=== PATIENT | female | born 1965 | race Hispanic/Latino ===

== ENCOUNTER 2017-12-13 19:50 | Emergency (ER) | payer OTHER ==
--- NOTE | 2017-12-13 21:22 | ER ---
Nurse's Notes [facility] Name: Eileen Marte Age: 52 yrs Sex: Female : 1965 Arrival Date: 12/13/2017 Time: 19:53 Bed 20 Private MD: Diagnosis: Cellulitis of right lower limb;Hypertension to be determined Presentation: 12/13 19:59 Presenting complaint: Patient states: abscess to RLE for 3 weeks, not responsive to PO la1 ABX. Transition of care: patient was not received from another setting of care. Onset of symptoms was December 13, 2017. Risk Assessment: Do you want to hurt yourself or someone else? Patient reports no desire to harm self or others. Initial Sepsis Screen: Does the patient meet any 2 criteria? No. Patient's initial sepsis screen is negative. Does the patient have a suspected source of infection? No. Patient's initial sepsis screen is negative. Care prior to arrival: None. 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 - Social history:: Smoking status: Patient uses tobacco products, smokes one-half pack cigarettes per day. - Ebola Screening: : No symptoms or risks identified at this time. Screenin:08 Abuse screen: Denies threats or abuse. Nutritional screening: No deficits noted. jd3 Tuberculosis screening: No symptoms or risk factors identified. Fall Risk Ambulatory Aid- None/Bed Rest/Nurse Assist (0 pts). Gait- Normal/Bed Rest/Wheelchair (0 pts) Mental Status- Oriented to own ability (0 pts). Total Jay Fall Scale indicates No Risk (0-24 pts). Assessment: 20:04 General: Appears in no apparent distress. uncomfortable, Behavior is cooperative, jd3 agitated. Pain: Complains of pain in right sarmiento Pain does not radiate. Quality of pain is described as aching, pressure. Neuro: Level of Consciousness is awake, alert, obeys commands, Oriented to person, place, time, situation. Cardiovascular: Capillary refill < 3 seconds Patient's skin is warm and dry. Pulses are palpable in right posterior tibial artery, right dorsalis pedis artery, left posterior tibial artery and left dorsalis pedis artery. Respiratory: Airway is patent Respiratory effort is even, unlabored, Respiratory pattern is regular, symmetrical. GI: Abdomen is round non-distended, Patient currently denies abdominal pain, diarrhea, nausea, vomiting. : No signs and/or symptoms were reported regarding the genitourinary system. EENT: No signs and/or symptoms were reported regarding the EENT system. Derm: Skin is intact, Skin is dry, Skin is normal, Skin temperature is warm Wound noted right sarmiento Wound is quarter sized wound that is red raised and scabbed over. Other: pt denies any fever or streaking up leg. Musculoskeletal: Circulation, motion, and sensation intact. Range of motion: intact in all extremities. 20:34 Reassessment: Patient appears in no apparent distress at this time. Patient and/or jd3 family updated on plan of care and expected duration. Pain level reassessed. Patient is alert, oriented x 3, equal unlabored respirations, skin warm/dry/pink. provider at bedside discussing plan of care. 21:04 Reassessment: Patient appears in no apparent distress at this time. Patient and/or jd3 family updated on plan of care and expected duration. Pain level reassessed. Patient is alert, oriented x 3, equal unlabored respirations, skin warm/dry/pink. 21:29 Reassessment: Patient appears in no apparent distress at this time. Patient and/or jd3 family updated on plan of care and expected duration. Pain level reassessed. Patient is alert, oriented x 3, equal unlabored respirations, skin warm/dry/pink. Vital Signs: 19:59 BP 176 / 100; Pulse 80; Resp 19; Temp 98.2(TE); Pulse Ox 100% on R/A; Weight 63.5 kg; la1 Height 5 ft. 0 in. (152.40 cm); 20:34 BP 166 / 88; Pulse 75; Resp 16 S; Pulse Ox 98% on R/A; jd3 21:02 BP 159 / 80; Pulse 84; Resp 16 S; Pulse Ox 98% on R/A; jd3 19:59 Body Mass Index 27.34 (63.50 kg, 152.40 cm) la1 ED Course: 19:53 Patient arrived in ED. ds1 19:58 Tomas Cat MD is Attending Physician. tw4 19:59 Triage completed. la1 20:00 Deshawn Watson, RN is Primary Nurse. jd3 20:00 Arm band placed on left wrist. la1 20:08 Patient has correct armband on for positive identification. Bed in low position. Call jd3 light in reach. Side rails up X 1. Adult w/ patient. 21:29 No provider procedures requiring assistance completed. Patient did not have IV access jd3 during this emergency room visit. Administered Medications: No medications were administered Outcome: 21:22 Discharge ordered by MD. tw4 21:29 Discharged to home ambulatory, with family. jd3 21:29 Condition: stable 21:29 Discharge instructions given to patient, family, Instructed on discharge instructions, follow up and referral plans. medication usage, Demonstrated understanding of instructions, follow-up care, medications, Prescriptions given X 1. 21:30 Patient left the ED. jd3 Signatures: Shanita Gramajo ds1 Sean Enciso RN RN laDeshawn Fernandes, JUANITA RN jTomas Covarrubias MD MD tw4
--- NOTE | 2017-12-13 21:23 | EDPHYS ---
Physician Documentation [facility] Name: Eileen Marte Age: 52 yrs Sex: Female : 1965 Arrival Date: 12/13/2017 Time: 19:53 Bed 20 Private MD: ED Physician Tomas Cat HPI: 12/14 05:19 This 52 yrs old Female presents to ER via Ambulatory with complaints of Leg tw4 Infection. 05:19 The patient presents with cellulitis of the right sarmiento. Description: The affected area tw4 is small. Onset: The symptoms/episode began/occurred 1 month(s) ago. Possible cause(s): unknown. Associated signs and symptoms: The patient has no apparent associated signs or symptoms. Modifying factors: the symptoms are alleviated by nothing, the symptoms are aggravated by nothing. Severity of symptoms: At their worst the symptoms were moderate, in the emergency department the symptoms are unchanged. The patient has not experienced similar symptoms in the past. 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 - Social history:: Smoking status: Patient uses tobacco products, smokes one-half pack cigarettes per day. - Ebola Screening: : No symptoms or risks identified at this time. ROS: 12/14 05:19 Constitutional: Negative for fever, chills, and weight loss, Eyes: Negative for injury, tw4 pain, redness, and discharge, Cardiovascular: Negative for chest pain, palpitations, and edema, Respiratory: Negative for shortness of breath, cough, wheezing, and pleuritic chest pain, Abdomen/GI: Negative for abdominal pain, nausea, vomiting, diarrhea, and constipation, Back: Negative for injury and pain, Neuro: Negative for headache, weakness, numbness, tingling, and seizure. Exam: 05:19 Constitutional: This is a well developed, well nourished patient who is awake, alert, tw4 and in no acute distress. Head/Face: Normocephalic, atraumatic. Chest/axilla: Normal chest wall appearance and motion. Nontender with no deformity. No lesions are appreciated. Cardiovascular: Regular rate and rhythm with a normal S1 and S2. No gallops, murmurs, or rubs. Normal PMI, no JVD. No pulse deficits. Respiratory: Lungs have equal breath sounds bilaterally, clear to auscultation and percussion. No rales, rhonchi or wheezes noted. No increased work of breathing, no retractions or nasal flaring. Abdomen/GI: Soft, non-tender, with normal bowel sounds. No distension or tympany. No guarding or rebound. No evidence of tenderness throughout. Back: No spinal tenderness. No costovertebral tenderness. Full range of motion. MS/ Extremity: Pulses equal, no cyanosis. Neurovascular intact. Full, normal range of motion. Neuro: Awake and alert, GCS 15, oriented to person, place, time, and situation. Cranial nerves II-XII grossly intact. Motor strength 5/5 in all extremities. Sensory grossly intact. Cerebellar exam normal. Normal gait. Vital Signs: 12/13 19:59 BP 176 / 100; Pulse 80; Resp 19; Temp 98.2(TE); Pulse Ox 100% on R/A; Weight 63.5 kg; la1 Height 5 ft. 0 in. (152.40 cm); 20:34 BP 166 / 88; Pulse 75; Resp 16 S; Pulse Ox 98% on R/A; jd3 21:02 BP 159 / 80; Pulse 84; Resp 16 S; Pulse Ox 98% on R/A; jd3 19:59 Body Mass Index 27.34 (63.50 kg, 152.40 cm) la1 MDM: 20:06 Patient medically screened. tw4 12/14 05:20 Differential diagnosis: allergic reaction, cellulitis, insect bite. Data reviewed: tw4 vital signs, nurses notes. Data interpreted: awake overnight monitor: Pulse oximetry: Interpretation: normal. Counseling: I had a detailed discussion with the patient and/or guardian regarding: the historical points, exam findings, and any diagnostic results supporting the discharge/admit diagnosis. Special discussion: I discussed with the patient/guardian in detail that at this point there is no indication for admission to the hospital. It is understood, however, that if the symptoms persist or worsen the patient needs to return immediately for re-evaluation. Administered Medications: No medications were administered Disposition: 12/13/17 21:22 Discharged to Home. Impression: Cellulitis of right lower limb, Hypertension to be determined. - Condition is Stable. - Discharge Instructions: Cellulitis, Adult, Hypertension, [id number]. - Prescriptions for Clindamycin HCl 300 mg Oral Capsule - take 1 capsule by ORAL route every 6 hours for 10 days; 40 capsule. - Medication Reconciliation Form, Thank You Letter, Antibiotic Education, Prescription Opioid Use form. - Follow up: Private Physician; When: Upon discharge from the Emergency Department; Reason: Further diagnostic work-up, Recheck today's complaints, Continuance of care. - Problem is an ongoing problem. - Symptoms have improved. Signatures: Sean Enciso, RN RN la1 Deshawn Watson RN RN jd3 Tomas Cat MD MD tw4 Corrections: (The following items were deleted from the chart) 12/13 21:30 21:22 12/13/2017 21:22 Discharged to Home. Impression: Cellulitis of right lower limb; jd3 Hypertension to be determined. Condition is Stable. Forms are Medication Reconciliation Form, Thank You Letter, Antibiotic Education, Prescription Opioid Use. Follow up: Private Physician; When: Upon discharge from the Emergency Department; Reason: Further diagnostic work-up, Recheck today's complaints, Continuance of care. Problem is an ongoing problem. Symptoms have improved. tw4
== END 2017-12-13 21:30 | disposition home or self-care (01) ==
LOC: ER 19:50
DX: L03.115 Cellulitis of right lower limb (principal); I10 Essential (primary) hypertension; F17.210 Nicotine dependence, cigarettes, uncomplicated; Z88.6 Allergy status to analgesic agent
CPT/HCPCS: 99282

== ENCOUNTER 2019-05-12 07:28 | Emergency (ER) | payer OTHER ==
[2019-05-12] MEDS ORDERED: NA CHLORIDE 0.9% 0 ML ONE (07:46)
--- NOTE | 2019-05-12 07:49 | EDPHYS ---
Physician Documentation [facility] Name: Eileen Marte Age: 53 yrs Sex: Female : 1965 Arrival Date: 05/12/2019 Time: 07:30 Bed 5 Private MD: [place]ño ED Physician Shyam Oliveira HPI: 05/12 07:38 This 53 yrs old Female presents to ER via Ambulatory with complaints of pm1 Possible Kidney Stone. 07:38 The patient complains of pain in the right low back. Onset: The symptoms/episode pm1 began/occurred this morning, at 03:00. Modifying factors: The symptoms are alleviated by possibly from vomiting and bowel movement, the symptoms are aggravated by nothing. Associated signs and symptoms: Pertinent positives: diarrhea, vomiting, Pertinent negatives: dysuria, fever. Severity of pain: in the emergency department the pain has improved is a 3 / 10. The patient has not experienced similar symptoms in the past. It is unknown whether or not the patient has recently seen a physician. Patient woke up this AM around 0300 with right flank pain that she believed was possibly a kidney stone. Has no history of kidney stones. Patient with vomiting and two episodes of diarrhea. Patient feels that her symptoms have improved after having the bowel movement. Currently pain only present to suprapubic area 3/10. Historical: - Allergies: 07:32 Codeine; sv - Home Meds: 07:40 telmisartan 40 mg oral tab 1 tab once daily [Active]; sv - PMHx: 07:40 Hypertension; sv - PSHx: 07:40 uterine ablation; sv - Immunization history:: Flu vaccine is not up to date. - Coronavirus screen:: The patient has NOT traveled to [place], [place], or [place] in the past 14 days. Proceed with normal triage process as indicated. The patient has NOT had contact with known/suspected case of Coronavirus? Proceed with normal triage procedures. - Social history:: Smoking status: Patient reports the use of cigarette tobacco products, denies chronic smoking, but will smoke occasionally. - Ebola Screening: : No symptoms or risks identified at this time. ROS: 07:41 Constitutional: Negative for fever, chills, and weight loss, Cardiovascular: Negative pm1 for chest pain, palpitations, and edema, Respiratory: Negative for shortness of breath, cough, wheezing, and pleuritic chest pain. 07:41 : Negative for injury, bleeding, discharge, and swelling, MS/Extremity: Negative for injury and deformity, Skin: Negative for injury, rash, and discoloration, Neuro: Negative for headache, weakness, numbness, tingling, and seizure. 07:41 Abdomen/GI: Positive for abdominal pain, vomiting, diarrhea, of the suprapubic area, Negative for constipation. 07:41 Back: Positive for flank pain, on the right. Exam: 07:41 Constitutional: This is a well developed, well nourished patient who is awake, alert, pm1 and in no acute distress. Head/Face: Normocephalic, atraumatic. Chest/axilla: Normal chest wall appearance and motion. Nontender with no deformity. No lesions are appreciated. 07:41 Cardiovascular: Regular rate and rhythm with a normal S1 and S2. No gallops, murmurs, or rubs. No pulse deficits. Respiratory: Lungs have equal breath sounds bilaterally, clear to auscultation and percussion. No rales, rhonchi or wheezes noted. No increased work of breathing, no retractions or nasal flaring. Abdomen/GI: Soft, non-tender, with normal bowel sounds. No distension or tympany. No guarding or rebound. No evidence of tenderness throughout. Back: No spinal tenderness. No costovertebral tenderness. Full range of motion. Skin: Warm, dry with normal turgor. Normal color with no rashes, no lesions, and no evidence of cellulitis. MS/ Extremity: Pulses equal, no cyanosis. Neurovascular intact. Full, normal range of motion. 07:41 Neuro: Orientation: is normal, Motor: moves all fours, Gait: is steady, at a normal pace, without difficulty. Vital Signs: 07:41 BP 137 / 83; Pulse 83; Resp 16; Pulse Ox 99% ; Weight 63.5 kg; Height 5 ft. 0 in. sv (152.40 cm); Pain 3/10; 07:41 Body Mass Index 27.34 (63.50 kg, 152.40 cm) sv MDM: 07:33 Patient medically screened. pm1 07:41 Data reviewed: vital signs. Data interpreted: Pulse oximetry: on room air is 99 %. pm1 Interpretation: normal. 07:43 Refusal of service: The patient/guardian displays adequate decision making capability pm1 and despite a detailed discussion of alternatives, benefits, risks, and consequences refuses: CT Scan, all lab tests, Medications. Administered Medications: No medications were administered Disposition: 10:21 Co-signature as Attending Physician, Shyam Oliveira MD I agree with the assessment and allen plan of care. Disposition: 05/12/19 07:45 Patient has left against medical advice. Impression: Unspecified abdominal pain, Low back pain. - Patients states they are going to Home. - Condition is Undetermined. - Discharge Instructions: Abdominal Pain, Adult, Flank Pain, Adult. Follow up: Emergency Department; When: As needed; Reason: Worsening of condition. Follow up: Private Physician; When: Upon discharge from the Emergency Department; Reason: Recheck today's complaints, Continuance of care, Re-evaluation by your physician. - Problem is new. - Symptoms have improved. Signatures: Dispatcher [employer] Sharifa Hawkins RN RN sv Anderson, Corey, MD MD cha Marinas, Patrick, DIRECTOR FAMILY DIRECTOR FAMILY pm1 Corrections: (The following items were deleted from the chart) 07:41 07:32 Allergies: PENICILLINS; sv sv 07:48 07:45 05/12/2019 07:45 Patients has left against medical advice. Impression: sv Unspecified abdominal pain; Low back pain. Patient states they are going to Home. Condition is Undetermined. Follow up: Emergency Department; When: As needed; Reason: Worsening of condition. Follow up: Private Physician; When: Upon discharge from the Emergency Department; Reason: Recheck today's complaints, Continuance of care, Re-evaluation by your physician. Problem is new. Symptoms have improved. pm1
--- NOTE | 2019-05-12 07:49 | ER ---
Nurse's Notes [facility] Name: Eileen Marte Age: 53 yrs Sex: Female : 1965 Arrival Date: 05/12/2019 Time: 07:30 Bed 5 Private MD: [place] Tre[place]ño Diagnosis: Unspecified abdominal pain;Low back pain Presentation: 05/12 07:32 Presenting complaint: Patient states: right buttock pain started this morning around sv 0300 and went around to the front abd, had a BM of diarrhea twice and pain subsided. Reports vomiting this morning and now only has lower abd soreness. Transition of care: patient was not received from another setting of care. Onset of symptoms was May 12, 2019 at 03:00. Risk Assessment: Do you want to hurt yourself or someone else? Patient reports no desire to harm self or others. Care prior to arrival: None. 07:32 Method Of Arrival: Ambulatory sv 07:32 Acuity: SARAHY 3 sv Triage Assessment: 07:32 General: Appears in no apparent distress. comfortable, well groomed, well developed, sv Behavior is calm, cooperative, appropriate for age. Pain: Complains of pain in right lower quadrant and left lower quadrant Pain does not radiate. Pain currently is 3 out of 10 on a pain scale. Quality of pain is described as "soreness" Pain began 0300 Is intermittent. Neuro: Level of Consciousness is awake, alert, obeys commands, Oriented to person, place, time, situation, Moves all extremities. Full function Gait is steady. Respiratory: Respiratory effort is even, unlabored, Respiratory pattern is regular, symmetrical. GI: Abdomen is flat, non-distended, Abd is soft and non tender X 4 quads. Reports lower abdominal pain, diarrhea, vomiting. Derm: Skin is pink, warm \\T\\ dry. Historical: - Allergies: 07:32 Codeine; sv - Home Meds: 07:40 telmisartan 40 mg oral tab 1 tab once daily [Active]; sv - PMHx: 07:40 Hypertension; sv - PSHx: 07:40 uterine ablation; sv - Immunization history:: Flu vaccine is not up to date. - Coronavirus screen:: The patient has NOT traveled to [place], [place], or [place] in the past 14 days. Proceed with normal triage process as indicated. The patient has NOT had contact with known/suspected case of Coronavirus? Proceed with normal triage procedures. - Social history:: Smoking status: Patient reports the use of cigarette tobacco products, denies chronic smoking, but will smoke occasionally. - Ebola Screening: : No symptoms or risks identified at this time. Screenin:41 Abuse screen: Denies threats or abuse. Denies injuries from another. Nutritional sv screening: No deficits noted. Tuberculosis screening: No symptoms or risk factors identified. Fall Risk None identified. Assessment: 07:45 Reassessment: Pt stated that she was wanting to leave because her pain has improved. sv Informed Bill TAPIA. Pt read the AMA form and had no questions and signed the paperwork. Informed pt that if the pain is to return she should go to the nearest ER. Vital Signs: 07:41 BP 137 / 83; Pulse 83; Resp 16; Pulse Ox 99% ; Weight 63.5 kg; Height 5 ft. 0 in. sv (152.40 cm); Pain 3/10; 07:41 Body Mass Index 27.34 (63.50 kg, 152.40 cm) sv ED Course: 07:30 Patient arrived in ED. as 07:30 [place] Tre[place]ño MD is Private Physician. as 07:32 Sharifa Doyle RN is Primary Nurse. sv 07:32 Arm band placed on Patient placed in an exam room, on a stretcher. sv 07:32 Patient has correct armband on for positive identification. Bed in low position. Call sv light in reach. Pulse ox on. NIBP on. Door closed. Head of bed elevated. 07:33 Bill Madden NP is PHCP. pm1 07:40 Triage completed. sv 07:45 Shyam Oliveira MD is Attending Physician. pm1 07:48 No provider procedures requiring assistance completed. Patient did not have IV access sv during this emergency room visit. Administered Medications: No medications were administered Outcome: 07:48 AMA AMA form signed sv 07:48 Condition: stable 07:48 Patient left the ED. sv Signatures: Sharifa Doyle RN RN Vicki Stringer Patrick, NP CRACKING UNIT OPERATOR pm1 Corrections: (The following items were deleted from the chart) 07:41 07:32 Allergies: PENICILLINS; sv sv
[2019-05-12 07:55] VITALS: BP 137/83; O2SAT 99
== END 2019-05-12 07:48 | disposition left against medical advice (07) ==
LOC: ER 07:28
DX: R10.9 Unspecified abdominal pain (principal); I10 Essential (primary) hypertension; F17.210 Nicotine dependence, cigarettes, uncomplicated; Z88.5 Allergy status to narcotic agent
CPT/HCPCS: 99283; J7030